=== PATIENT | female | born 1945 | race Caucasian/White ===

== ENCOUNTER 2017-01-14 05:50 | Day surgery (SDC) | payer OTHER ==
[~2017-01-14] VITALS: Ht 165.1 cm; Wt 75.0 kg
[2017-01-14] VITALS (7 sets, daily range): BP systolic 128–151; BP diastolic 74–95; PULSE 73–90; RESP 14–20; TEMP 97.9–98.3; O2SAT 93–98
[2017-01-14] MEDS ORDERED: TRAM50TA PO (06:47)
[2017-01-14] MEDS ORDERED: SODIUM CHLORIDE 0.9% 1000 ML IV SCH (07:00)
[2017-01-14] MEDS ORDERED: ceFAZolin 2 GM PREMIX 50 ML - implanted port/tunneled catheter insertion IV SCH (07:00)
[2017-01-14] MEDS ORDERED: VANCOMYCIN 1000 MG/NS 250 ML - implanted port/tunneled catheter IV SCH ×2 (07:00)
[2017-01-14] MEDS ORDERED: CHLORHEXIDINE GLUCONATE 2 % 1 PACK (2 CLOTHS) TOPICAL SCH (07:00)
[2017-01-14] MEDS ORDERED: POVIDONE IODINE 5% (ANTISEPSIS KIT) 4 APPLICATIONS EACH NARE SCH (07:00)
[2017-01-14] MEDS ORDERED: MIDAZOLAM HCL 5 MG/5 ML VIAL ONE (07:50)
[2017-01-14] MEDS ORDERED: ONDANSETRON HCL 4 MG/2 ML VIAL ONE (07:51)
--- NOTE | 2017-01-14 09:10 | PD.RAD ---
Post Procedure Progress Note Pre Procedure Diagnosis: (1) B-cell lymphoma Post Procedure Diagnosis: (1) B-cell lymphoma Procedure Date: Jan 14, 2017 Supervising Radiologist: Senthil Mcfarland Estimated blood loss: 3cc Anesthesia: Local, Conscious Sedation Plan of Activity Patient to Unit: [facility] Patient Condition: Fair Additional Comments: Port placed without difficulty. Port in good position OK for use Full dictated report to follow See PACS Report for procedural detail/treatment Senthil Mcfarland MD Jan 14, 2017 09:10
[2017-01-14] MEDS ORDERED: SODIUM CHLORIDE 0.9% FLUSH 10 ML FLUSH IVF PRN (09:15)
--- NOTE | 2017-01-14 10:48 | RADRPT ---
EXAM DATE/TIME: 01/14/2017 08:07 [facility] COMPARISON: No previous studies available for comparison. INDICATIONS : Patient presents with lymphoma in need of port placement for chemotherapy treatment. MEDICAL HISTORY : Lymphoma SURGICAL HISTORY : Choley Hysterectomy ENCOUNTER: Initial ACUITY: 3 months PAIN SCORE: 4/10 LOCATION: Right side of face. FLUORO TIME: 0.4 minutes IMAGE SERIES: 1 SEDATION TIME: 15 minutes ACCESS: Right internal jugular vein SEDATION: 1.) 3.5 mg midazolam (Versed) IV 2.) 100 mcg fentanyl (Sublimaze) IV Prophylactic antibiotics were administered with appropriate pre-procedure timing. Vancomycin within 2 hours of procedure, Ancef (or alternative) within 1 hour of procedure. DEVICE: 1. [address] [place] single [address] CT w/vortex PROCEDURE : 1. Continuous pulse oximetry and EKG monitoring. 2. Intravenous conscious sedation. 3. Ultrasound guidance for venous access. 4. Fluoroscopic guided implantable central venous port placement. The patient was placed supine. The neck was prepped in sterile fashion. Full sterile technique was u sed, including cap, mask, sterile gloves and gown, and a large sterile sheet. Hand hygiene and 2% ch lorhexidine Betadine was utilized per protocol for cutaneous antisepsis with appropriate dry time for site. Sterile gel and sterile probe cover were utilized for ultrasound guidance. The skin and sub cutaneous tissues were infiltrated with local anesthetic solution. Under direct ultrasound guidance, central venous access was accomplished via the right internal jugul ar vein. The ultrasound images depicting access guidance were stored and saved to PACS for permanent record. A subcutaneous pocket was created using blunt dissection. The port was introduced to the p ocket. The catheter tubing was fed through a subcutaneous tunnel to the venotomy site. The catheter tubing was cut to a suitable length and then was introduced through a valved Peel-Away sheath and po sitioned with catheter tubing tip at the cavo-atrial junction level. The pocket incision was closed with subcuticular Vicryl suture. Steri-Strips were applied. The port was flushed and locked with he arely solution per protocol. Sterile dressing was applied to the site. The patient tolerated the pr ocedure well. Conscious sedation was performed with the prescribed dosages and duration as above in the presence of an independent trained radiology nurse to assist in the monitoring of the patient. EKG and oximetry remained stable throughout the procedure. The patient tolerated the procedure well and there were no complications. The patient was sent to post anesthesia recovery in stable condition. CONCLUSION: Uncomplicated ultrasound and fluoroscopic guided implanted central venous port catheter placement as described in detail above. An 8 [place] Power port was placed. Senthil Mcfarland MD on January 14, 2017 at 10:46 Board Certified Radiologist. This report was verified electronically.
[2017-01-14] MEDS ORDERED: oxyCODONE/ACETAMINOPHEN 5 MG/325 MG TAB PO ONE (11:00)
== END 2017-01-14 11:30 | disposition home or self-care (01) ==
LOC: HRIP 05:50 → HROP 05:50
PROVIDERS: ATTEND Internal Medicine Hematology & Oncology
DX: Z45.2 Encounter for adjustment and management of vascular access device (principal); C85.10 Unspecified B-cell lymphoma, unspecified site
CPT/HCPCS: 36561; 76937; 77001; 99152; C1788; J0690; J1642; J2250; J2405; J3010; J3370; J7030; J7050